=== PATIENT | female | born 1985 | race Caucasian/White ===

== ENCOUNTER → 2019-01-17 | Outpatient (CLI) | payer BC ==
[~2019-01-17] MED LIST: CATHETER FLUSH 10 ML SYR IV PRN; HYDR-3454 PO; IBP600T1 PO
--- NOTE | 2019-01-17 15:08 | Diagnostic Imaging Report ---
RADIOPHARMACEUTICAL: 5.05mCi Tc-99m Choletec IV INDICATION: Right upper quadrant abdominal pain. TECHNIQUE: Anterior dynamic imaging for 45 minutes. Additional 60 minute imaging was performed after the patient ingested an 8 ounce can of Ensure Plus. FINDINGS: There is homogenous uptake throughout the liver. The gallbladder is visualized at 20minutes and small bowel at 30minutes. After CCK analog administration, there is normal contraction of the gallbladder with normal calculated GBEF at 69%. IMPRESSION: 1. Normal HIDA Scan without evidence of cystic or common duct obstruction. 2. Normal GBEF of 69%. Dictated by: Dictated on workstation # [id number]
== END ==
LOC: CARD 12:10
PROVIDERS: ATTEND Physician Assistant
DX: R10.11 Right upper quadrant pain (principal)
CPT/HCPCS: 78227

== ENCOUNTER 2022-05-17 04:53 | Emergency (ER) | payer BC ==
[~2022-05-17] VITALS: Ht 175.2 cm; Wt 55.0 kg
[~2022-05-17 04:53] MED LIST changes: -CATHETER FLUSH 10 ML SYR IV PRN
[2022-05-17] MEDS ORDERED: NS IV 1000 ML 1,000 ML IV STA (05:09)
[2022-05-17] MEDS ORDERED: ONDANSETRON 4 MG/2 ML (SDV) Z0FRAN IVP STA (05:09)
[2022-05-17] MEDS ORDERED: KETOROLAC 30 MG/ML VIAL IVP STA (05:09)
--- NOTE | 2022-05-17 05:15 | ED Abdominal Pain ---
General Stated Complaint: LOWER ABDOMINAL PAIN Source of Information: Patient History of Present Illness Date Seen by Provider: May 17, 2022 Time Seen by Provider: 04:58 Initial Comments 37-year-old female presenting with complaints of right flank pain since Sunday. She states the pain is 10 out of 10. She has had nausea and vomiting with it. She is currently on her menstrual cycle. She states she has had some similar pains in the past but it has not been this severe. She previously had had testing on her gallbladder when she had pain similar to this and was told that that was all okay. She has had 2 sections in the past but otherwise no abdominal surgeries. She does not have a primary care provider and denies any chronic medical conditions. She had taken a pain from yesterday to see if it would help with her pain and symptoms but states it did not make any difference. She has not tried taking any other medicine for the pain. She states the pain is little better with taking a hot bath. She has increased pain with palpation and movement Timing/Duration: 3-4 Days Severity/Quality: Severe, Sharp Location: RUQ, Flank (Right) Radiation: RUQ, Flank (Right) Activities at Onset: None Modifying Factors: Worsens With Movement, Worsens With Palpation Associated Symptoms: Back Pain (Pain around the right kidney); No Chest Pain, No Diaphoresis, No Fever/Chills, No Fatigue, No Headache, No Heartburn; Nausea/Vomiting; No Rash, No Shortness of Air, No Swelling/Mass in Abdomen, No Syncope, No Weakness Allergies and Home Medications Allergies Coded Allergies: No Known Drug Allergies (Unverified , 12/25/12) Patient Home Medication List Home Medication List Reviewed: Yes Hydrocodone/Acetaminophen (Hydrocodone-Acetamin 5-325 mg) 5 Mg-325 Mg Tablet, 1 TAB PO Q6H PRN for PAIN-SEVERE (8-10) Prescribed by: SHAYNE AYERS on 05/17/22 0643 Nitrofurantoin Monohyd/M-Cryst (Macrobid 100 mg Capsule) 100 Mg Capsule, 1 TAB PO BID Prescribed by: SHAYNE AYERS on 05/17/22 06 Ondansetron (Ondansetron Odt) 4 Mg Tab.rapdis, 4 MG PO Q6H PRN for NAUSEA/VOMITING Prescribed by: SHAYNE AYERS on 05/17/22 0642 Discontinued Medications Hydrocodone Bit/Acetaminophen (Vicodin 5-300 Mg Tablet) 1 Each Tablet, 1-2 EACH PO every 4-6 hours PRN, (Reported) Discontinued Reason: Referral/FU Appt-Addtl Entered as Reported by: JOSSY PHOENIX on 01/03/13 1030 Last Action: Discontinued Ibuprofen (Motrin) 600 Mg Tab, 600 MG PO Q6H PRN, (Reported) Discontinued Reason: Referral/FU Appt-Addtl Entered as Reported by: JOSSY PHOENIX on 01/03/13 1030 Last Action: Discontinued Review of Systems Review of Systems Constitutional: No chills, No dizziness, No fever EENTM: No Symptoms Reported Respiratory: No Symptoms Reported Cardiovascular: No Symptoms Reported Gastrointestinal: See HPI Genitourinary: Frequency Musculoskeletal: back pain (Pain around the right kidney) Skin: No rash Psychiatric/Neurological: Anxiety Endocrine: No Symptoms Reported Hematologic/Lymphatic: No Symptoms Reported Past Ddksiwv-Dqmcqt-Ljakjc Hx Patient Social History Tobacco Use?: Yes Substance use?: Yes Substance type: Marijuana Alcohol Use?: Yes Past Medical History Surgery/Hospitalization HX: section x2 Surgeries: Yes Section Respiratory: No Cardiac: No Neurological: No Reproductive Disorders: Yes (IMPLANTED IUD, PELVIC PAIN) Genitourinary: No Gastrointestinal: No Musculoskeletal: No Endocrine: No HEENT: No Physical Exam Vital Signs Vital Signs - First Documented 05/17/22 04:57 Temp 36.3 Pulse 75 Resp 18 B/P (MAP) 141/100 (114) Pulse Ox 97 O2 Delivery Room Air Capillary Refill : Height/Weight/BMI Height: '" Weight: lbs. oz. kg; BMI Method: General Appearance: mild distress (Anxious and tearful at times grabbing her right side), thin HEENT: PERRL/EOMI, pharynx normal Neck: non-tender, full range of motion, supple, normal inspection Respiratory: chest non-tender, lungs clear, normal breath sounds, no respiratory distress, no accessory muscle use Cardiovascular: normal peripheral pulses, regular rate, rhythm Gastrointestinal: soft, no pulsatile mass, abnormal bowel sounds (Hypoactive bowel sounds); No distended; guarding (Right upper quadrant); No rebound; tenderness (Right upper quadrant) Rectal: deferred Extremities: normal range of motion, non-tender, normal capillary refill Back: CVA tenderness (R) Neurologic/Psychiatric: alert, oriented x 3 Skin: normal color, warm/dry; No rash Progress/Results/Core Measures Results/Orders Lab Results Laboratory Tests Test 05/17/22 05:00 05/17/22 05:05 Range/Units Urine Color DK YELLOW Urine Clarity TURBID Urine pH 6.5 5-9 Urine Specific [place] 1.015 L 1.016-1.022 Urine Protein 2+ H NEGATIVE Urine Glucose (UA) NEGATIVE NEGATIVE Urine Ketones NEGATIVE NEGATIVE Urine Nitrite POSITIVE H NEGATIVE Urine Bilirubin NEGATIVE NEGATIVE Urine Urobilinogen 0.2 < = 1.0 MG/DL Urine Leukocyte Esterase 2+ H NEGATIVE Urine RBC (Auto) 2+ H NEGATIVE Urine RBC 25-50 H /HPF Urine WBC >100 H /HPF Urine Squamous Epithelial Cells RARE /HPF Urine Crystals NONE /LPF Urine Bacteria LARGE H /HPF Urine Casts NONE /LPF Urine Mucus LARGE H /LPF Urine Culture Indicated YES White Blood Count 10.0 4.3-11.0 10^3/uL Red Blood Count 4.33 3.80-5.11 10^6/uL Hemoglobin 13.0 11.5-16.0 g/dL Hematocrit 38 35-52 % Mean Corpuscular Volume 87 80-99 fL Mean Corpuscular Hemoglobin 30 25-34 pg Mean Corpuscular Hemoglobin Concent 35 32-36 g/dL Red Cell Distribution Width 11.8 10.0-14.5 % Platelet Count 244 130-400 10^3/uL Mean Platelet Volume 9.8 9.0-12.2 fL Immature Granulocyte % (Auto) 1 % Neutrophils (%) (Auto) 84 H 42-75 % Lymphocytes (%) (Auto) 9 L 12-44 % Monocytes (%) (Auto) 6 0-12 % Eosinophils (%) (Auto) 0 0-10 % Basophils (%) (Auto) 0 0-10 % Neutrophils # (Auto) 8.4 H 1.8-7.8 10^3/uL Lymphocytes # (Auto) 0.9 L 1.0-4.0 10^3/uL Monocytes # (Auto) 0.6 0.0-1.0 10^3/uL Eosinophils # (Auto) 0.0 0.0-0.3 10^3/uL Basophils # (Auto) 0.0 0.0-0.1 10^3/uL Immature Granulocyte # (Auto) 0.1 0.0-0.1 10^3/uL Neutrophils % (Manual) 82 % Lymphocytes % (Manual) 9 % Monocytes % (Manual) 2 % Basophils % (Manual) 1 % Band Neutrophils 1 % Atypical Lymphocytes 2 % Reactive Lymphocytes 3 % Platelet Estimate NORMAL Blood Morphology Comment NORMAL Sodium Level 137 135-145 MMOL/L Potassium Level 3.6 3.6-5.0 MMOL/L Chloride Level 101 98-107 MMOL/L Carbon Dioxide Level 24 21-32 MMOL/L Anion Gap 12 5-14 MMOL/L Blood Urea Nitrogen 7 7-18 MG/DL Creatinine 0.67 0.60-1.30 MG/DL Estimat Glomerular Filtration Rate 117 BUN/Creatinine Ratio 10 Glucose Level 125 H 70-105 MG/DL Calcium Level 9.9 8.5-10.1 MG/DL Corrected Calcium 9.6 8.5-10.1 MG/DL Total Bilirubin 0.6 0.1-1.0 MG/DL Aspartate Amino Transf (AST/SGOT) 11 5-34 U/L Alanine Aminotransferase (ALT/SGPT) 9 0-55 U/L Alkaline Phosphatase 65 40-136 U/L Total Protein 7.3 6.4-8.2 GM/DL Albumin 4.4 3.2-4.5 GM/DL Lipase 13 8-78 U/L My Orders Orders - SHAYNE AYERS MD Urine Bedside (05/17/22 05:00) Comprehensive Metabolic Panel (05/17/22 05:00) Lipase (05/17/22 05:00) Ua Culture If Indicated (05/17/22 05:00) Ed Iv/Invasive Line Start (05/17/22 05:00) Cbc With Automated Diff (05/17/22 05:00) Ct Abdomen/Pelvis Wo (05/17/22 05:01) Ns Iv 1000 Ml (Sodium Chloride 0.9%) (05/17/22 05:09) Ondansetron Injection (Zofran Injectio (05/17/22 05:09) Ketorolac Injection (Toradol Injection) (05/17/22 05:09) Manual Differential (05/17/22 05:05) Urine Culture (05/17/22 05:00) Ceftriaxone 1 Gm Pre-Mix (Rocephin 1 Gm (05/17/22 06:07) Vital Signs/I&O 05/17/22 04:57 Temp 36.3 Pulse 75 Resp 18 B/P (MAP) 141/100 (114) Pulse Ox 97 O2 Delivery Room Air Progress Progress Note #1: Progress Note Obtain urinalysis as well as blood work and CT scan without contrast to evaluate for possible kidney stone versus pyelonephritis versus colitis versus diverticulitis versus ovarian cyst. Give normal saline 1 L IV fluid bolus for hydration, Toradol 30 mg IV for pain, Zofran 4 mg IV for nausea and vomiting. Progress Note #2: Progress Note CBC without elevation of WBC count. UA positive for Nit, LE, WBC, Bacteria for a UTI. CT scan shows right hydronephrosis and concern for UPJ obstruction. No kidney stone seen. Progress Note #3: Progress Note Chemistry panel does not show acute significant abnormality to account for her symptoms. She has normal renal function. Counseled patient and significant other about results. Advised about follow-up with urology as she may need stent or further evaluation of her kidney and hydronephrosis. Take antibiotics to treat for pyelonephritis. Counseled on follow up and return precautions. Diagnostic Imaging Diagonstic Imaging: CT Plain Films/CT/US/NM/MRI: abdomen, pelvis Comments NAME: MYRNA OROPEZA [facility] REC#: [id number] PT STATUS: REG ER : 1985 PHYSICIAN: SHAYNE AYERS MD ADMIT DATE: 05/17/22/ER FS Draft Date of Exam:05/17/22 CT ABDOMEN/PELVIS WO PROCEDURE: CT abdomen and pelvis without contrast. TECHNIQUE: Multiple contiguous axial images were obtained through the abdomen and pelvis without the use of intravenous contrast. Auto Exposure Controls were utilized during the CT exam to meet ALARA standards for radiation dose reduction. INDICATION: Right flank pain for 3 days. COMPARISON: None FINDINGS: The lung bases are clear. The heart is normal in size. The liver demonstrates no focal lesions. The spleen has punctate calcified granulomas. The pancreas appears normal on this noncontrast exam. The adrenal glands appear normal. There does appear to be severe right hydronephrosis with a very large renal pelvis. The majority of the ureter does not appear distended, however. No calculi are seen along the expected course of the ureter although the ureter is not well seen distally. The left kidney appears normal. The bowel loops are nondistended without obstruction. The appendix is normal. No free fluid or free air is seen. The urinary bladder is decompressed. No acute osseous abnormality is seen. IMPRESSION: 1. Severe right hydronephrosis without significant hydroureter appreciated, consistent with a UPJ obstruction. No obstructing calculus is seen. A large parapelvic cyst is considered less likely. Follow-up CT using renal contrast protocol could be considered. 2. There is no teleradiology report. Dictated on workstation # [id number] Dict: 05/17/22 0535 Trans: 05/17/22 0543 [facility] [id number] Interpreted by: DANIEL ROMERO MD Electronically signed by: Reviewed: Reviewed by Me Departure Impression Primary Impression: Pyelonephritis Additional Impressions: Acute right flank pain Nausea and vomiting in adult Hydronephrosis with ureteropelvic junction (UPJ) obstruction Disposition: 01 HOME, SELF-CARE Condition: Improved Departure-Patient Inst. Decision time for Depature: 06:37 Referrals: NO,LOCAL PHYSICIAN (PCP) Primary Care Physician RASHEL MONTALVO MD [facility] [place] Patient Instructions: Opioids for Short-Term Treatment of Pain ED, Urinary Tract Infection, Adult ED, Abdominal Pain, Adult ED, Kidney Infection (DC), Hydronephrosis, Adult (DC) Add. Discharge Instructions: Stay well-hydrated and drink plenty of fluids. This will help to flush out the kidney infection. Use the nausea tablets to help control your nausea and keep your stomach settled so you can drink and eat better. You may try taking acetaminophen and/or ibuprofen to help with pain. For severe pain you could take the hydrocodone/acetaminophen. Make sure to take the full course of antibiotics to treat for the infection. Call Dr. Montalvo's office to see about getting set up with him for follow up. When you call let them know you had a CT scan done in the ER at [place] that showed Hydronephrosis (swollen kidney) and narrowing or obstruction of right ureter If you have uncontrolled vomiting, fever over 101 F, or pain that is not controlled with medicine then return or seek medical care as you may need to get IV antibiotics or be admitted for treatment if your symptoms are worsening and not improving. Scripts Ondansetron (Ondansetron Odt) 4 Mg Tab.rapdis 4 MG PO Q6H PRN for NAUSEA/VOMITING for 5 Days, #20 TAB 0 Refills Prov: SHAYNE AYERS MD 05/17/22 Hydrocodone/Acetaminophen (Hydrocodone-Acetamin 5-325 mg) 5 Mg-325 Mg Tablet 1 TAB PO Q6H PRN for PAIN-SEVERE (8-10) for 5 Days, #20 TAB 0 Refills Prov: SHAYNE AYERS MD 05/17/22 Nitrofurantoin Monohyd/M-Cryst (Macrobid 100 mg Capsule) 100 Mg Capsule 1 TAB PO BID for UTI for 10 Days, #20 CAP 0 Refills Prov: SHAYNE AYERS MD 05/17/22 Work/School Note: Work Release Form Date Seen in the Emergency Department: May 17, 2022 Return to Work: May 18, 2022 Restrictions: No Restrictions SHAYNE AYERS MD May 17, 2022 05:15
[2022-05-17 05:24] LABS: BILIRUBIN,URINE NEGATIVE (NEGATIVE); CLARITY,URINE TURBID; GLUCOSE, URINE (UA) NEGATIVE (NEGATIVE); KETONES,URINE NEGATIVE (NEGATIVE); LEUKOCYTE ESTERASE ,URINE 2+ (NEGATIVE); NITRITE,URINE POSITIVE (NEGATIVE); PH,URINE 6.5 (5-9); PROTEIN,URINE 2+ (NEGATIVE)
[2022-05-17 05:26] LABS: BASOPHILS % (AUTO) 0 % (0-10); EOSINOPHILS % (AUTO) 0 % (0-10); HEMATOCRIT 38 % (35-52); LYMPHOCYTES # (AUTO) 0.9 10^3/uL (1.0-4.0); LYMPHOCYTES % (AUTO) 9 % (12-44); MEAN CORPUSCULAR HEMOGLOBIN 30 pg (25-34); MEAN CORPUSCULAR HGB CONC 35 g/dL (32-36); MEAN CORPUSCULAR VOLUME 87 fL (80-99); MEAN PLATELET VOLUME 9.8 fL (9.0-12.2); MONOCYTES # (AUTO) 0.6 10^3/uL (0.0-1.0); MONOCYTES % (AUTO) 6 % (0-12); NEUTROPHILS # (AUTO) 8.4 10^3/uL (1.8-7.8); NEUTROPHILS % (AUTO) 84 % (42-75); PLATELET COUNT 244 10^3/uL (130-400)
--- NOTE | 2022-05-17 05:44 | Diagnostic Imaging Report ---
PROCEDURE: CT abdomen and pelvis without contrast. TECHNIQUE: Multiple contiguous axial images were obtained through the abdomen and pelvis without the use of intravenous contrast. Auto Exposure Controls were utilized during the CT exam to meet ALARA standards for radiation dose reduction. INDICATION: Right flank pain for 3 days. COMPARISON: None FINDINGS: The lung bases are clear. The heart is normal in size. The liver demonstrates no focal lesions. The spleen has punctate calcified granulomas. The pancreas appears normal on this noncontrast exam. The adrenal glands appear normal. There does appear to be severe right hydronephrosis with a very large renal pelvis. The majority of the ureter does not appear distended, however. No calculi are seen along the expected course of the ureter although the ureter is not well seen distally. The left kidney appears normal. The bowel loops are nondistended without obstruction. The appendix is normal. No free fluid or free air is seen. The urinary bladder is decompressed. No acute osseous abnormality is seen. IMPRESSION: 1. Severe right hydronephrosis without significant hydroureter appreciated, consistent with a UPJ obstruction. No obstructing calculus is seen. A large parapelvic cyst is considered less likely. Follow-up CT using renal contrast protocol could be considered. 2. There is no teleradiology report. Dictated by: Dictated on workstation # [id number]
[2022-05-17 05:49] LABS: ATYPICAL LYMPHOCYTES 2 %; BAND NEUTROPHILS 1 %; BASOPHILS % (MANUAL) 1 %; LYMPHOCYTES % (MANUAL) 9 %; MONOCYTES % (MANUAL) 2 %; NEUTROPHILS % (MANUAL) 82 %
[2022-05-17 05:50] LABS: PLATELET ESTIMATE NORMAL; RBC MORPH NORMAL; REACTIVE LYMPHOCYTES 3 %
[2022-05-17 05:51] LABS: BACTERIA,URINE LARGE /HPF; RBC,URINE 25-50 /HPF; SQUAMOUS EPITHELIAL CELL,UR RARE /HPF; WBC,URINE >100 /HPF
[2022-05-17 05:52] LABS: COLOR,URINE DK YELLOW
[2022-05-17] MEDS ORDERED: cefTRIAXone 1 GM PRE-MIX 50 ML IV STA (06:07)
[2022-05-17 06:09] LABS: BILIRUBIN,TOTAL 0.6 MG/DL (0.1-1.0); CALCIUM 9.9 MG/DL (8.5-10.1); CREATININE SERUM 0.67 MG/DL (0.60-1.30); POTASSIUM 3.6 MMOL/L (3.6-5.0)
[2022-05-17 06:10] LABS: ALBUMIN 4.4 GM/DL (3.2-4.5); TOTAL PROTEIN 7.3 GM/DL (6.4-8.2)
[2022-05-17] MEDS ORDERED: ONDA4TAB11 PO (06:42)
[2022-05-17] MEDS ORDERED: NITR-65 PO (06:42)
[2022-05-17] MEDS ORDERED: ACHD5005 PO (06:42)
[2022-05-17 06:49] VITALS: BP 109/74
== END 2022-05-17 06:49 | disposition home or self-care (01) ==
LOC: EDUNIT# 04:53 → ER FS 04:56
DX: N12 Tubulo-interstitial nephritis, not specified as acute or chronic (principal); N13.30 Unspecified hydronephrosis; Z72.0 Tobacco use; Z28.310 Unvaccinated for COVID-19
CPT/HCPCS: 36415; 74176; 80053; 81000; 83690; 84703; 85007; 85027; 87088; 96361; 96365; 96375

== ENCOUNTER 2022-05-24 05:42 | Outpatient (CLI) | payer BC ==
[~2022-05-24] VITALS: Ht 175.3 cm; Wt 59.0 kg
[~2022-05-24 05:42] MED LIST changes: +ACHD5005 PO; +NITR-65 PO; +ONDA4TAB11 PO
== END 2022-05-25 15:58 | disposition home or self-care (01) ==
LOC: PREOP 05:42
PROVIDERS: ATTEND Urology
DX: Z01.818 Encounter for other preprocedural examination (principal)

== ENCOUNTER 2022-05-31 07:04 | Day surgery (SDC) | payer BC ==
[~2022-05-31] VITALS: Ht 175.3 cm; Wt 59.0 kg
[2022-05-31] VITALS (9 sets, daily range): BP systolic 92–129; BP diastolic 53–84
--- NOTE | 2022-05-31 07:23 | Progress Note-Pre Operative ---
Pre-Operative Progress Note Date of Available H&P: May 31, 2022 Date H&P Reviewed: May 31, 2022 Time H&P Reviewed: 07:23 Changes from last HP NONE Pre-Operative Diagnosis: RT UPJ OBSTRUCTION RASHEL MONTALVO MD May 31, 2022 07:23
[2022-05-31] MEDS ORDERED: cefTRIAXone 1,000 MG in SYRINGE-IVPB 0 SYRINGE IV ONE (07:30)
[2022-05-31] MEDS ORDERED: cefTRIAXone 1 GM PRE-MIX 50 ML IV ONE (07:30)
[2022-05-31] MEDS: LACTATED RINGERS 1,000 ML IV PRN ×2 (07:55→09:28)
[2022-05-31] MEDS ORDERED: MIDAZOLAM 2 MG/2 ML (VERSED) VIAL ONE (08:36)
[2022-05-31] MEDS ORDERED: fentaNYL INJ 100 MCG/2 ML AMP ONE (08:36)
[2022-05-31] MEDS ORDERED: ONDANSETRON 4 MG/2 ML (SDV) Z0FRAN ONE (08:36)
[2022-05-31] MEDS ORDERED: SEVOFLURANE (ULTANE) 15 ML INHAL SOLN ONE (08:36)
[2022-05-31] MEDS ORDERED: proPOfol 200 MG/20 ML (DIPRIVAN) VIAL IV ONE (08:36)
[2022-05-31] MEDS ORDERED: LIDOCAINE PF 1% 5 ML (XYLOCAINE) AMP ONE (08:37)
[2022-05-31] MEDS ORDERED: ROCURONIUM 10 MG/ML 5 ML SYRINGE IV ONE (08:51)
[2022-05-31] MEDS ORDERED: IOHEXOL 300 MG/ML 30 ML (OMNIPAQUE 300) VIAL IV ONE (09:00)
[2022-05-31] MEDS ORDERED: SUGAMMADEX 500 MG/5 ML VIAL (BRIDION) IV ONE (09:12)
[2022-05-31] MEDS ORDERED: KETOROLAC 30 MG/ML VIAL ONE (09:13)
--- NOTE | 2022-05-31 09:23 | Progress Note-Post Operative ---
Post-Operative Progess Note Surgeon (s)/Structural Technician (s) Surgeon RASHEL MONTALVO MD Structural Technician: NONE Pre-Operative Diagnosis RT UPJ OBSTRUCTION Post-Operative Diagnosis SAME Procedure & Operative Findings Date of Procedure 05/31/22 Procedure Performed/Findings CYSTOSCOPY, RT RETROGRADE UROGRAM AND ATTEMPTED STENT Anesthesia Type GENERAL Estimated Blood Loss Estimated blood loss (mL): NONE Specimens/Packing Specimens Removed NONE Packing: NONE RASHEL MONTALVO MD May 31, 2022 09:23
--- NOTE | 2022-05-31 09:24 | Discharge Inst-Urology ---
Discharge Inst-Urology Reconcile Patient Problems Problems Reviewed?: Yes Final Diagnosis RT UPJ OBSTRUCTION Patient Instructions/Follow Up Plan/Assessment/Instructions Please make appointment to been seen in office Sunday or Sunday. Increase oral fluids for 48 hours and then as needed. Diet and Activity as tolerated. If questions or concerns contact your physician Or seek help at emergency department. RASHEL MONTALVO MD May 31, 2022 09:24
[2022-05-31] MEDS ORDERED: ONDANSETRON 4 MG/2 ML (SDV) Z0FRAN IVP PRN (09:30)
[2022-05-31] MEDS ORDERED: HYDROmorphone 2 MG/ML VIAL (DILAUDID) IV ONE (09:30)
--- NOTE | 2022-05-31 10:32 | Diagnostic Imaging Report ---
Cystoscopy with retrograde and stent placement. Fluoroscopy was provided in the OR during performance of a retrograde pyelogram stent placement. 35 seconds of fluoroscopic time was utilized. 4 images were obtained. Images demonstrate significant dilatation of the right renal collecting system and right renal pelvis. There appears to be moderate dilatation of the right ureter as well. No discrete filling defect or mass seen. There is some tortuosity in the proximal right ureter. IMPRESSION: Fluoroscopy during right-sided retrograde pyelogram. There does appear to be moderate amount of hydroureteronephrosis. Dictated by: Dictated on workstation # [id number]
[2022-05-31] MEDS ORDERED: PHEN-640 PO (11:07)
[2022-05-31] MEDS ORDERED: NITR-65 PO (11:07)
--- NOTE | 2022-05-31 11:59 | Anesthesia-General Post-Op ---
General Patient Condition Mental Status/LOC: Same as Preop Cardiovascular: Satisfactory Nausea/Vomiting: Absent Respiratory: Satisfactory Pain: Controlled Complications: Absent Post Op Complications Complications None Follow Up Care/Instructions Patient Instructions None needed. Anesthesia/Patient Condition Patient Condition Patient is doing well, no complaints, stable vital signs, no apparent adverse anesthesia problems. No complications reported per nursing. D/C home per [facility] [place] Criteria: Yes RADHA CURTIS CRNA May 31, 2022 11:59
--- NOTE | 2022-05-31 13:53 | OPERATIVE REPORT ---
DATE OF SERVICE: 05/31/2022 PREOPERATIVE DIAGNOSIS: Right ureteropelvic junction obstruction. POSTOPERATIVE DIAGNOSIS: Right ureteropelvic junction obstruction. OPERATION PERFORMED: Cystoscopy, right retrograde urogram and attempted insertion of stent. SURGEON: Giovanni Montalvo MD ANESTHESIA: General. COMPLICATIONS: None. DESCRIPTION OF PROCEDURE: Under satisfactory general anesthesia, the patient in lithotomy position, genitalia were prepped and draped in the usual sterile fashion. Cystoscope was introduced in the bladder that was normal except for sluggish efflux on the right side. Using the foroblique lens, I passed a spiral tip ureteral catheter into the right ureteral orifice and injected contrast on the way up to the kidney, visualized a significant right UPJ obstruction and what looks like a high riding ureter, doubt retrocaval. On withdrawing the catheter, there was complete emptying of the ureter, but very very sluggish emptying of the pelvis. I attempted to pass a stent, was unsuccessful. I discontinued any further attempt, emptied the bladder, removed the cystoscope. The patient tolerated the procedure and anesthesia well and was sent to recovery room in stable condition. PLAN: Refer to for endoscopic treatment. Job ID: [id number] DocumentID: [id number] Dictated Date: 05/31/2022 09:26:52 Line Rider Date: 05/31/2022 13:52:34 Dictated By: GIOVANNI MONTALVO MD
== END 2022-05-31 11:25 | disposition home or self-care (01) ==
LOC: SDC 07:04
PROVIDERS: ATTEND Urology
DX: N13.0 Hydronephrosis with ureteropelvic junction obstruction (principal); F17.290 Nicotine dependence, other tobacco product, uncomplicated
CPT/HCPCS: 76000; 84703; 87081